=== PATIENT | male | born 1965 | race Caucasian/White ===

== ENCOUNTER 2018-12-15 07:55 | Emergency (ER) | payer BC, OTHER ==
[~2018-12-15] VITALS: Ht 177.8 cm; Wt 93.4 kg
[~2018-12-15 07:55] MED LIST: COLACE100 MG PO; DOXYCYCLINE HY100 MG PO; LEVAQUIN500 MG PO; SINGULAIR10 MG PO
--- NOTE | 2018-12-15 08:00 | NUR ---
[facility] WITH STEADY GAIT. PT AA&OX3. C/O INTERMITTENT SOB FOR ABOUT A WEEK. PT GOWNED AND PLACED ON MONITOR
[2018-12-15] MEDS ORDERED: ALBUTEROL SULF 0.083% NEB SOLN 3 ML NEB NEB STA (08:32)
[2018-12-15] MEDS ORDERED: CLONIDINE HCL 0.1 MG TAB PO ONE (08:45)
[2018-12-15] MEDS ORDERED: IPRATROPIUM BROMIDE 0.02% 2.5 ML NEB NEB ONE (08:45)
[2018-12-15] MEDS ORDERED: PREDNISONE 20 MG TAB PO ONE (08:45)
--- NOTE | 2018-12-15 09:47 | Diagnostic Imaging Report ---
EXAMINATION: CHEST 2 VIEWS INDICATION: Shortness of breath ^SOB ^[id number] ^0905 COMPARISON: None FINDINGS: TUBES and LINES: None. LUNGS: Lungs are well inflated. Perihilar peribronchial opacities due to bronchitis. There is no evidence of pneumonia or pulmonary edema. PLEURA: No pleural effusion or pneumothorax. HEART AND MEDIASTINUM: The cardiomediastinal silhouette is unremarkable. BONES AND SOFT TISSUES: No acute osseous lesion. Soft tissues are unremarkable. UPPER ABDOMEN: No free air under the diaphragm. IMPRESSION: Perihilar peribronchial opacities due to bronchitis. Signed by: Dr. Troy Guthrie M.D. on 12/15/2018 9:44 AM
== END 2018-12-15 10:22 | disposition home or self-care (01) ==
LOC: ER 07:55
DX: R05 Cough (principal); J20.9 Acute bronchitis, unspecified; J44.1 Chronic obstructive pulmonary disease with (acute) exacerbation; I10 Essential (primary) hypertension
CPT/HCPCS: 71046; 93005; 99283; J7512

== ENCOUNTER 2019-03-14 15:52 | Inpatient (IN) | payer BC ==
[~2019-03-14] VITALS: Ht 177.8 cm; Wt 93.4 kg
--- OUTSIDE RECORDS SUMMARY | 2019-03-14 15:54 | XMS REPORT ---
[facility] Address Unknown Phone Unavailable Care Team Providers Care Acrylic Fabricator Name Role Phone Radha OWENS Unavailable Unavailable Problems This patient has no known problems. Allergies, Adverse Reactions, Alerts This patient has no known allergies or adverse reactions. Medications This patient has no known medications. Results Test Description Test Time Test Comments Text Results Atomic Results Result Comments CHEST 2 VIEWS 2018-12-15 09:43:00 [place] [address] Patient Name: SUNG SZYMANSKI MR #: [id number] : 1965 Age/Sex: 53/M Req #: [id number] Adm Physician: Ordered by: DANII OWENS MD Report #: [id number] Location: ER Room/Bed: Procedure: [id number] DX/CHEST 2 VIEWS Exam Date: 12/15/18 Exam Time: 904 REPORT STATUS: Signed EXAMINATION: CHEST 2 VIEWS INDICATION: Shortness of breath SOB [id number] COMPARISON: None FINDINGS: TUBES and LINES: None. LUNGS: Lungs are well inflated. Perihilar peribronchial opacities due to bronchitis. There is no evidence of pneumonia or pulmonary edema. PLEURA: No pleural effusion or pneumothorax. HEART AND MEDIASTINUM: The cardiomediastinal silhouette is unremarkable. BONES AND SOFT TISSUES: No acute osseous lesion. Soft tissues are unremarkable. UPPER ABDOMEN: No free air under the diaphragm. IMPRESSION: Perihilar peribronchial opacities due to bronchitis. Signed by: Dr. Troy Guthrie M.D. on 12/15/2018 9:44 AM Dictated By: TROY GUTHRIE MD, MD 3 Transcribed By: YAN on 12/15/18943 COPY TO: DANII OWENS MD
[2019-03-14 17:12] LABS: BILIRUBIN,URINE NEGATIVE (NEGATIVE); CLARITY,URINE SL CLOUDY (CLEAR); COLOR,URINE YELLOW (YELLOW); KETONES,URINE NEGATIVE (NEGATIVE); LEUKOCYTE ESTERASE ,URINE NEGATIVE (NEGATIVE); NITRITE,URINE NEGATIVE (NEGATIVE); PROTEIN,URINE DIPSTICK TRACE (NEGATIVE); URINE UROBILINOGEN 0.2 mg/dL (0.2 - 1)
[2019-03-14 17:24] LABS: BACTERIA,URINE FEW /HPF; WBC,URINE (MAN) 0-5 /HPF (0-5)
[2019-03-14 17:25] LABS: MUCUS,URINE FEW (RARE)
[2019-03-14] MEDS ORDERED: SODIUM CHLORIDE 0.9% 1000ML 1,000 ML IV STA (18:03)
[2019-03-14] MEDS ORDERED: ONDANSETRON HCL INJ 2MG/ML 2ML 2 MG/ML VIAL ONE (18:10)
[2019-03-14] MEDS ORDERED: KETOROLAC TROMETHAMINE 30 MG/ML VIAL ONE (18:10)
[2019-03-14] MEDS ORDERED: ONDANSETRON HCL INJ 2MG/ML 2ML 2 MG/ML VIAL IV STA (18:12)
[2019-03-14] MEDS ORDERED: KETOROLAC TROMETHAMINE 30 MG/ML VIAL IV STA (18:12)
[2019-03-14] MEDS ORDERED: ONDANSETRON HCL INJ 2MG/ML 2ML 2 MG/ML VIAL IV ONE (18:30)
[2019-03-14] MEDS ORDERED: KETOROLAC TROMETHAMINE 30 MG/ML VIAL IV ONE (18:30)
[2019-03-14 18:57] LABS: BASOPHILS % 0.3 % (0.0-1.0); EOSINOPHILS # (AUTO) 0.2 (0.0-0.4); EOSINOPHILS % 1.4 % (0.0-6.0); HEMATOCRIT 45.4 % (38.2-49.6); HEMOGLOBIN 14.8 g/dL (14.0-18.0); LYMPHOCYTES # (AUTO) 4.1 (1.0-3.2); LYMPHOCYTES % 35.1 % (18.0-39.1); MEAN CORPUSCULAR HEMOGLOBIN 28.3 pg (28-32); MEAN CORPUSCULAR HGB CONC 32.6 g/dL (31-35); MEAN CORPUSCULAR VOLUME 86.8 fL (81-99); MONOCYTES % 8.6 % (4.4-11.3); NEUTROPHILS # (AUTO) 6.4 (2.1-6.9); NEUTROPHILS % 54.3 % (38.7-80.0); PLATELET COUNT 300 x10e3/uL (140-360); RED BLOOD COUNT 5.23 x10e6/uL (4.3-5.7); RED CELL DISTRIBUTION WIDTH 13.2 % (11.7-14.4)
[2019-03-14 19:03] LABS: ALANINE AMINOTRANSFERASE 19 IU/L (0-55); ALBUMIN 3.4 g/dL (3.5-5.0); ALBUMIN/GLOBULIN RATIO 0.7 (0.8-2.0); ALKALINE PHOSPHATASE 72 IU/L (40-150); ANION GAP 15.2 mmol/L (8-16); BLOOD UREA NITROGEN 11 mg/dL (7-26); BUN/CREATININE RATIO 13 (6-25); CALCIUM 9.9 mg/dL (8.4-10.2); CARBON DIOXIDE 27 mmol/L (22-29); CHLORIDE 96 mmol/L (98-107); CREATINE KINASE 38 IU/L (30-200); CREATININE, SERUM 0.86 mg/dL (0.72-1.25); EST GLOMERULAR FILTRATION RATE > 60 ML/MIN (60-); GLUCOSE 95 mg/dL (74-118); POTASSIUM 4.2 mmol/L (3.5-5.1); SODIUM 134 mmol/L (136-145)
[2019-03-14 19:06] LABS: AMYLASE 31 U/L (25-125); LIPASE 13 U/L (8-78)
--- NOTE | 2019-03-14 19:41 | Diagnostic Imaging Report ---
EXAM: CT ABDOMEN/PELVIS WO DATE: 03/14/2019 5:56 PM INDICATION: Right flank pain x4 days, 53-year-old male COMPARISON: None TECHNIQUE: The abdomen and pelvis were scanned using a multidetector helical scanner. Coronal and sagittal reformations were obtained. CT low dose techniques were utilized, as applicable. IV Contrast: 0 ml Isovue 300/370 FINDINGS: Lack of IV contrast decreases sensitivity in evaluating abdominal and pelvic organs. LOWER THORAX: No consolidations LIVER/BILIARY: No masses. No ductal dilatation. GALLBLADDER: Unremarkable SPLEEN: Unremarkable PANCREAS: Unremarkable ADRENALS: No nodules KIDNEYS: No stones. No hydronephrosis. GI TRACT: 5.1 cm soft tissue mass in the right lower quadrant with an adjacent enlarged appendix with extensive adjacent inflammatory stranding. An adjacent loop of small bowel appears effaced by this mass and inflammation VESSELS: Unremarkable PERITONEUM/RETROPERITONEUM: No free air or fluid LYMPH NODES: No lymphadenopathy REPRODUCTIVE ORGANS/BLADDER: Unremarkable SOFT TISSUES: Unremarkable BONES: No suspicious bone lesions. IMPRESSION: There is a 5.1 cm inflammatory mass in the right lower quadrant involving the distal appendix. This may represent acute appendicitis with extensive phlegmon formation, however an underlying mass lesion cannot be excluded. Signed by: Loki Small MD on 03/14/2019 7:37 PM
[2019-03-14] MEDS ORDERED: D5.45%NS/KCL 20MEQ 1,000 ML IV SCH (20:56)
[2019-03-14] MEDS ORDERED: ZOLPIDEM TARTRATE 5 MG TAB PO PRN (21:00)
[2019-03-14] MEDS ORDERED: DIPHENHYDRAMINE HCL INJ 50 MG/ML VIAL IV PRN (21:00)
[2019-03-14] MEDS ORDERED: AMLODIPINE BESYL5 MG PO (21:23)
[2019-03-14] MEDS: LACTATED RINGER'S 1,000 ML IV SCH (21:32)
[2019-03-14] MEDS: PIPER-TAZ 3.375 GM 50 ML IV SCH (21:51)
[2019-03-14] MEDS ORDERED: PIPER-TAZ 3.375 GM / NS 50ML IV SCH (22:00)
[2019-03-14 22:30] VITALS: BP 133/79
[2019-03-14] MEDS: METRONIDAZOLE 500MG/NS 100ML 100 ML IV SCH (22:30)
[2019-03-14] MEDS: MORPHINE SULFATE INJ 4 MG/ML INJ 1ML IV PRN (23:00)
[2019-03-15] VITALS (10 sets, daily range): BP systolic 110–152; BP diastolic 60–94
[2019-03-15] MEDS: ONDANSETRON HCL INJ 2MG/ML 2ML 2 MG/ML VIAL IV PRN ×3 (02:23→09:35)
--- NOTE | 2019-03-15 03:06 | NUR ---
PT IS TRANSFERRED FROM ER .PT IS AOX3 .RESPIRATIONS ARE EVEN AND UNLABORED .SKIN WARM AND DRY TO TOUCH C/O ABD PAIN .FAMILY AT THE BEDSIDE .PT IS NPO AFTER MIDNIGHT .ASSESSMENT DONE .PT RESTING .CALL LIGHT WITH IN REACH .CONTINUE TO MONITOR
[2019-03-15] MEDS: MORPHINE SULFATE INJ 4 MG/ML INJ 1ML IV PRN ×3 (03:10→21:50)
[2019-03-15] MEDS ORDERED: MORPHINE SULFATE 2 MG/ML SYR 1ML IV STA (04:32)
[2019-03-15] MEDS ORDERED: MORPHINE SULFATE INJ 4 MG/ML INJ 1ML IV PRN (04:45)
[2019-03-15] MEDS ORDERED: MORPHINE SULFATE INJ 4 MG/ML INJ 1ML IV STA (05:03)
[2019-03-15] MEDS: LACTATED RINGER'S 1,000 ML IV SCH (05:13)
[2019-03-15] MEDS: METRONIDAZOLE 500MG/NS 100ML 100 ML IV SCH ×3 (05:48→22:00)
--- NOTE | 2019-03-15 05:50 | NUR ---
PT C/O PAIN AND CALED DR DANIELLE'S BROADCAST OPERATIONS TECHNICIAN AND GOT THE ORDER FOR MORPHINE 2 MG STAT.GIVEN MORPHINE .PT RESTING .CALL LIGHT WITH IN REACH .
[2019-03-15 05:54] LABS: BASOPHILS % 0.3 % (0.0-1.0); EOSINOPHILS # (AUTO) 0.2 (0.0-0.4); HEMATOCRIT 40.1 % (38.2-49.6); HEMOGLOBIN 13.4 g/dL (14.0-18.0); LYMPHOCYTES # (AUTO) 3.5 (1.0-3.2); LYMPHOCYTES % 31.9 % (18.0-39.1); MEAN CORPUSCULAR HEMOGLOBIN 28.8 pg (28-32); MEAN CORPUSCULAR HGB CONC 33.4 g/dL (31-35); MEAN CORPUSCULAR VOLUME 86.1 fL (81-99); MONOCYTES # (AUTO) 0.9 (0.2-0.8); MONOCYTES % 8.3 % (4.4-11.3); NEUTROPHILS # (AUTO) 6.3 (2.1-6.9); NEUTROPHILS % 57.2 % (38.7-80.0); PLATELET COUNT 265 x10e3/uL (140-360); RED BLOOD COUNT 4.66 x10e6/uL (4.3-5.7); RED CELL DISTRIBUTION WIDTH 13.2 % (11.7-14.4)
[2019-03-15 06:11] LABS: ANION GAP 11.2 mmol/L (8-16); BLOOD UREA NITROGEN 12 mg/dL (7-26); BUN/CREATININE RATIO 14 (6-25); CALCIUM 9.2 mg/dL (8.4-10.2); CARBON DIOXIDE 28 mmol/L (22-29); CHLORIDE 101 mmol/L (98-107); CREATININE, SERUM 0.86 mg/dL (0.72-1.25); EST GLOMERULAR FILTRATION RATE > 60 ML/MIN (60-); GLUCOSE 112 mg/dL (74-118); POTASSIUM 4.2 mmol/L (3.5-5.1); SODIUM 136 mmol/L (136-145)
--- NOTE | 2019-03-15 07:15 | NUR ---
PATIENT IN BED RESTING WITH EYES CLOSED, NO RESPIRATORY DISTRESS OBSERVED. IV FLUID INFUSING ORDERED. TATOO ON BOTH ARMS. BED IN LOWER POSITION, CALL LIGHT AT REACH.
--- NOTE | 2019-03-15 07:29 | NUR ---
REPORT GIVEN TO THE ONCOMING NURSE
[2019-03-15] MEDS: PIPER-TAZ 3.375 GM 50 ML IV SCH ×3 (07:31→22:00)
[2019-03-15] MEDS: FAMOTIDINE 20 MG/2 ML VIAL IV SCH ×2 (09:38→16:55)
[2019-03-15] MEDS ORDERED: LORAZEPAM INJ 2 MG/ML VIAL IV PRN (10:45)
[2019-03-15] MEDS ORDERED: HYDRALAZINE HCL 20 MG/ML VIAL IV PRN (10:45)
[2019-03-15] MEDS ORDERED: ACETAMINOPHEN 325 MG TAB PO PRN (10:45)
--- NOTE | 2019-03-15 12:32 | NUR ---
DR UGARTE'S NEUROLOGY PHYSICIAN IN TO SEE PATIENT. NEW ORDERS RECEIVED.
[2019-03-15] MEDS: HYDROCODONE/APAP 7.5MG-325MG 1 EA TAB PO PRN ×2 (13:25→18:00)
[2019-03-15] MEDS ORDERED: CITRATE OF MAGNESIA 300ML BOTTLE PO NR (13:30)
--- NOTE | 2019-03-15 15:07 | NUR ---
Nutrition Screen Note RD Recommendation for Physician: - When medically feasible ADAT to goal of GI Soft Plan of Care: RD following, monitoring for tolerance and adequacy Nutrition reason for involvement: Nutrition Risk Trigger- MST Primary Diagnose(s): appendicitis, appendiceal abscess PMH: no H&P Ht: 70 in Wt: 206 lb BMI: 29.6 kg/m2 IBW: [address] Assessment: (03/15) 53 YOM admitted for appendicitis, evaluated today per MST screen. Pt discussed during am rounds, eval for surgical intervention pending. Pt in significant pain and moaning at time of visit, unable to obtain nutrition hx at this time. Pt with no signs of malnutrition per physical assessment. Chart reviewed. Labs and meds reviewed, BMP WNL. Will monitor and continue to follow. Current Diet: Clear Liquids Malnutrition Evaluation (03/15/19) The patient does not meet criteria for a specified degree of malnutrition at this time. Will re-evaluate at follow-up as appropriate. Unable to assess at this time. Diet Education Needs Assessment: Diet education not indicated, on transitionary diet. Nutrition Care Level: Low Signed: Sammie Aguirre RD, LD, CNSC
--- NOTE | 2019-03-15 15:30 | NUR ---
Visit made by the Spiritual Care Department Pastoral Visitor, Mary Miranda. PV provided pastoral presence, prayer, hospitality, and supportive listening. Pastoral Visitor informed pt/family of the scope of [facility] and availability. RAH SPENCER Basin Operator Spiritual Care Department O: [phone] Pager: [phone] ([phone] number calling from)
--- NOTE | 2019-03-15 15:33 | NUR ---
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
--- NOTE | 2019-03-15 16:42 | NUR ---
DR CRAIG IN TO SEE PATIENT, NOTIFIED OF PAIN MEDICATION NOT HELPING MUCH. NEW ORDERS RECEIVED.
[2019-03-15] MEDS ORDERED: LORAZEPAM 0.5 MG TAB PO PRN (17:15)
--- NOTE | 2019-03-15 19:29 | Consultation ---
DATE OF CONSULTATION: 03/15/2019 HISTORY OF PRESENT ILLNESS: The patient is a 53-year-old male, who presents with complaints of abdominal pain, says the pain started in mid abdomen about four days ago, now is more in the right flank. He denies nausea, vomiting, or fever. He came to the emergency room where CT scan of the abdomen and pelvis was done, which revealed a mass in the right lower quadrant associated with the appendix, but there was some small surrounding inflammation. The patient says the pain is a little bit worse today. PAST MEDICAL HISTORY: Otherwise unremarkable. He has hypertension. He has had no previous surgery. There were no known allergies. CURRENT MEDICATION: Amlodipine. FAMILY HISTORY: Noncontributory. SOCIAL HISTORY: The patient smokes cigarettes, had quit for a while, but recently he started smoking again, does not drink alcohol. 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 REVIEW OF SYSTEMS: As stated above, otherwise was negative. He has had no urinary symptoms. PHYSICAL EXAMINATION: GENERAL: The patient is awake and alert. VITAL SIGNS: Essentially normal. He is afebrile. Heart rate is around 100. HEENT: Reveals no scleral icterus. NECK: Has no masses. LUNGS: Equal breath sounds are clear bilaterally. CARDIAC: Regular rate and rhythm with no murmur. ABDOMEN: Soft. There is mild right lower quadrant tenderness with questionable signs of peritonitis. There are no palpable masses. EXTREMITIES: Have no edema. Pulses were palpable. NEUROLOGIC: Intact. LABORATORY DATA: White blood count 11,000, hemoglobin 13.4, hematocrit 40. Chemistries were essentially normal. ASSESSMENT: This is a 53-year-old male with abdominal pain with a mass in the right lower quadrant adjacent to the appendix appears possibly arising from the appendix, this could be an abscess or could be a tumor involving the appendix. The patient likely would benefit from surgery. At this point, we will try to do partial bowel prep as he may require partial colon resection as this does not have the typical appearance of appendiceal abscess, tentatively planned surgery for tomorrow. Procedure was explained to the patient including risks, benefits, and alternatives. He understands the procedure. He has had the opportunity to ask questions. He is aware of the possible need for open surgery. The possible need for partial colon resection. Thank you for asking me to see Mr. Contreras. Lloyd W MD JOSE Abdullahi/THAO /[id number]
--- NOTE | 2019-03-15 19:38 | NUR ---
RECEIVED PT IN BED AOX3 .DENIES PAIN .FAMILY AT THE BEDSIDE .PT NPO AFTER MIDNIGHT .CALL LIGHT WITH IN REACH
--- NOTE | 2019-03-16 01:10 | Consultation ---
DATE OF CONSULTATION: 03/15/2019 Psychiatric Consultation The patient was evaluated and events noted. REASON FOR CONSULTATION: To evaluate the patient's mood, anxiety, and depression. HISTORY OF PRESENT ILLNESS: The patient is a 53-year-old male, admitted to the hospital for appendiceal abscess. Psychiatric consultation is called to evaluate the patient's mood. Upon evaluation today, the patient is found to be in the room. He is alert, awake, and oriented to situation. The patient admits to having depression and anxiety due to recent loss of his son last year, which he is still grieving. He denies feeling hopeless or helpless. Denies any suicidal or homicidal ideation. Denies any hallucination. He reports intermittent problem with sleep. He denies any problem with appetite. The patient claims that he has tried Zoloft before, but had bad side effects, which made him more angry. He tried Lexapro before and it worked for him. PAST PSYCHIATRIC HISTORY: The patient denies past psychiatric history, although he claims he took Zoloft. He denies past suicide attempts. He denies alcohol or drug use. FAMILY HISTORY: The patient claims his mother has some sort of psychiatric illness. SOCIAL HISTORY: The patient lives with his . MENTAL STATUS EXAM: The patient is a middle-aged male. He is alert, awake, and oriented to situation. Mood is anxious and depressed. He denies any suicidal or homicidal ideation. He denies any hallucination. Affect seems good with mood. Insight and judgment are fair. Thought process is concrete. No delusion elicited. CURRENT MEDICATIONS: 1. Famotidine. 2. Morphine. 3. Metronidazole/sodium chloride. 4. Zosyn. 5. Pinnacle. 6. Zofran. 7. Hydralazine. 8. Tylenol. 9. Ativan p.r.n. IV. 10. Benadryl. 11. Ambien at bedtime p.r.n. LABORATORY DATA: Current labs; WBC 11.08, RBC 4.6, hemoglobin 13.4, hematocrit 40.1, and platelets 265. Sodium 136, potassium 4.2, chloride 101, CO2 of 28, BUN 12. ASSESSMENT: Major depressive disorder, recurrent, moderate. PLAN: 1. Add Lexapro 5 mg p.o. daily. 2. Ativan 0.5 mg p.o. q.6 hours p.r.n. 3. Continue Ativan p.r.n. IV. 4. Monitor for mood. 5. Supportive therapy. 6. Continue Ambien p.r.n. at bedtime. Thank you for this consultation. Dictated by Cande Madrigal PA-C Mariajose Bhagat MD QTV/MODL /[id number]
[2019-03-16] MEDS: MORPHINE SULFATE INJ 4 MG/ML INJ 1ML IV PRN ×5 (01:21→22:00)
[2019-03-16 04:27] VITALS: BP 150/69
[2019-03-16] MEDS ORDERED: ACETAMINOPHEN 325 MG SUPP PR PRN (04:30)
[2019-03-16 05:32] LABS: BASOPHILS % 0.4 % (0.0-1.0); EOSINOPHILS # (AUTO) 0.2 (0.0-0.4); EOSINOPHILS % 1.5 % (0.0-6.0); HEMATOCRIT 36.9 % (38.2-49.6); HEMOGLOBIN 12.7 g/dL (14.0-18.0); LYMPHOCYTES % 30.7 % (18.0-39.1); MEAN CORPUSCULAR HEMOGLOBIN 29.1 pg (28-32); MEAN CORPUSCULAR HGB CONC 34.4 g/dL (31-35); MEAN CORPUSCULAR VOLUME 84.6 fL (81-99); MONOCYTES # (AUTO) 0.8 (0.2-0.8); MONOCYTES % 8.3 % (4.4-11.3); NEUTROPHILS # (AUTO) 5.7 (2.1-6.9); NEUTROPHILS % 58.8 % (38.7-80.0); PLATELET COUNT 255 x10e3/uL (140-360); RED BLOOD COUNT 4.36 x10e6/uL (4.3-5.7); RED CELL DISTRIBUTION WIDTH 12.9 % (11.7-14.4)
[2019-03-16] MEDS: METRONIDAZOLE 500MG/NS 100ML 100 ML IV SCH ×3 (05:40→22:44)
[2019-03-16 05:53] LABS: ALANINE AMINOTRANSFERASE 45 IU/L (0-55); ALBUMIN 2.9 g/dL (3.5-5.0); ALKALINE PHOSPHATASE 84 IU/L (40-150); ANION GAP 13.1 mmol/L (8-16); BILIRUBIN,DIRECT 0.4 mg/dL (0.0-0.5); BLOOD UREA NITROGEN 9 mg/dL (7-26); BUN/CREATININE RATIO 11 (6-25); CALCIUM 8.8 mg/dL (8.4-10.2); CARBON DIOXIDE 26 mmol/L (22-29); CHLORIDE 98 mmol/L (98-107); EST GLOMERULAR FILTRATION RATE > 60 ML/MIN (60-); GLUCOSE 109 mg/dL (74-118); MAGNESIUM 1.6 MG/DL (1.3-2.1); POTASSIUM 4.1 mmol/L (3.5-5.1); SODIUM 133 mmol/L (136-145)
[2019-03-16 06:13] LABS: FREE T4 (FREE THYROXINE) 1.11 ng/dL (0.9-1.8); THYROID STIMULATING HORMONE 1.246 uIU/mL (0.350-4.940)
[2019-03-16 07:00] VITALS: BP 124/64
[2019-03-16] MEDS ORDERED: SODIUM CHLORIDE 0.9% 1000ML 1,000 ML IV SCH (07:00)
--- NOTE | 2019-03-16 07:00 | NUR ---
The pt. was received post bedside rounds completed with the of-going nurse. The pt. reports pain level at 9/10 and was advised that pain med will be given as soon as possible.
[2019-03-16] MEDS: PIPER-TAZ 3.375 GM 50 ML IV SCH ×3 (07:06→22:00)
--- NOTE | 2019-03-16 07:09 | NUR ---
PT C/O PAIN DURING THE NIGHT .GIVEN MORPHINE Q3HRS .TEM WAS HIGH NOTIFIED DR UGARET's BENDING MACHINE OPERATOR .GOT THE ORDER TO TYLENOL SUPPOSITORIES GIVEN TYLENOL SUPP.CONTINUE TO MONITOR
[2019-03-16 07:49] VITALS: BP 124/64
[2019-03-16] MEDS: FAMOTIDINE 20 MG/2 ML VIAL IV SCH ×2 (08:36→16:56)
[2019-03-16] MEDS: ESCITALOPRAM OXALATE 10 MG TAB PO SCH (08:36)
[2019-03-16 12:05] VITALS: BP 115/74
[2019-03-16] MEDS ORDERED: BUPIVACAINE HCL 0.5% INJ 30 ML VIAL INJ ONE (12:46)
[2019-03-16] MEDS ORDERED: ACETAMINOPHEN 325 MG TAB PO PRN (13:45)
[2019-03-16] MEDS ORDERED: ONDANSETRON HCL INJ 2MG/ML 2ML 2 MG/ML VIAL IV PRN (13:45)
[2019-03-16] MEDS ORDERED: HYDROMORPHONE 2MG/ML 2 MG/ML ML ONE (14:08)
--- NOTE | 2019-03-16 14:49 | NUR ---
The pt, returned to the unit from Surgery in stable condition.
--- NOTE | 2019-03-16 14:55 | NUR ---
ATTEMPTED TO GET CHOICE FOR PT SNF ORDER, PT IN PROCEDURE AND UNAVAILABLE.
[2019-03-16 15:52] VITALS: BP 149/75
[2019-03-16] MEDS: DEXTROSE 5%/LACTATED RINGERS 1,000 ML IV SCH ×2 (17:52→20:00)
[2019-03-16] MEDS ORDERED: FENTANYL CITRATE/PF 100MCG/2 ML INJ ONE (18:03)
--- NOTE | 2019-03-16 18:42 | NUR ---
The pt's iv is bleeding at the site and it was dc'd and a new start in the left hand 20g cath.
[2019-03-16] MEDS ORDERED: ONDANSETRON HCL INJ 2MG/ML 2ML 2 MG/ML VIAL ONE (18:43)
[2019-03-16] MEDS ORDERED: LIDOCAINE HCL 2% LOCAL INJ 5 ML SDV VIAL INJ ONE (18:43)
[2019-03-16] MEDS ORDERED: DEXAMETHASONE SOD PHOS INJ 4 MG/ML VIAL ONE (18:43)
[2019-03-16] MEDS ORDERED: PROPOFOL IV EMULSION 10 MG/ML 20 ML VIAL ONE (18:43)
[2019-03-16] MEDS ORDERED: ROCURONIUM BROMIDE 10 MG/ML 5ML VIAL ONE (18:43)
[2019-03-16] MEDS ORDERED: SEVOFLURANE INHAL SOLN 250 ML PEN BTL ONE (18:43)
--- NOTE | 2019-03-16 19:00 | NUR ---
Patient visited in room during nursing rounds. Patient alert and oriented x3. Ambulatory in room prn. at bedside visiting. Pt on IVF (D5LR at 125ml/hr) and scheduled IV antibiotics. Pt still having some frequent abdominal pain and will be medicated accordingly. Call shelton within reach. Will monitor closely.
--- NOTE | 2019-03-16 19:01 | NUR ---
3 Lap sites on abdomen noted s/p Lap Appendectomy. Bandages covering sites clean and dry.
[2019-03-16 20:00] VITALS: BP 134/64
--- NOTE | 2019-03-16 21:00 | Operative Report ---
DATE OF PROCEDURE: 03/16/2019 SURGEON: Lloyd Abdullahi MD PREOPERATIVE DIAGNOSIS: Acute appendicitis. POSTOPERATIVE DIAGNOSIS: Acute appendicitis with periappendiceal abscess. PROCEDURE: Laparoscopic appendectomy with drainage of periappendiceal abscess. GRAPHIC ART DESIGNER: None. ANESTHESIA: General endotracheal. INDICATIONS AND FINDINGS: The patient is a 53-year-old male admitted with complaints of right flank pain. Workup revealed findings suggesting a possible appendiceal abscess or mass involving the appendix. At surgery, there was abscess around the appendix which was in the retroperitoneum with the remainder of laparoscopy unremarkable. TECHNIQUE: After adequate general endotracheal anesthesia with the patient in supine position, the abdomen was prepped and draped in a sterile fashion with ChloraPrep solution. Skin in the umbilicus was infiltrated with 0.5% Marcaine. Incision was made in the umbilicus, abdominal wall was elevated and Veress needle was introduced. Pneumoperitoneum was then created. A 10 mm trocar and cannula were then passed through the umbilical wound. Laparoscopic camera was introduced. Initial laparoscopy revealed inflammatory process on the right side of the abdomen. A 12 mm trocar and cannula were placed suprapubically and a 5 mm trocar and cannula placed in the right upper quadrant. These were placed under direct vision. The small bowel was not involved with the mass. The cecum was adherent over the right lateral abdominal wall. Using blunt dissection, the cecum was freed from the abdominal wall and there was some purulent fluid, which was drained approximately 30 mL of purulence was drained. With the cecum elevated, base of the appendix identified and the base of the appendix was dissected free. Window was created between the base of the appendix and mesoappendix. The base of the appendix was divided close to the cecum with Endo-THALIA stapler. The appendix was freed from the abdominal wall, it was inflamed. The mesoappendix was divided with LigaSure device freeing the appendix completely. Appendix was then placed into an Endopouch and brought out through the suprapubic cannula. Care was taken to not touch the abdominal wall. The area of the appendectomy was inspected for hemostasis, which was seen to be adequate. It was irrigated with saline. All fluid aspirated and inspected for hemostasis, which was seen to be adequate. Instruments and cannulas were then removed. Pneumoperitoneum was evacuated. Wounds were then closed. Fascia in the umbilical and suprapubic wounds closed with 0-Vicryl. Skin to all wounds closed with rodger. Sterile dressing was applied. The patient tolerated the procedure well. Estimated blood loss was 25 mL. There were no complications. All counts were correct. The patient was taken to the recovery room in satisfactory condition. MD FLORA MartinG/MODL /[id number] cc: Donald Denny MD
[2019-03-17] VITALS (7 sets, daily range): BP systolic 97–131; BP diastolic 60–120
[2019-03-17] MEDS: MORPHINE SULFATE INJ 4 MG/ML INJ 1ML IV PRN ×3 (01:23→09:40)
[2019-03-17] MEDS: METRONIDAZOLE 500MG/NS 100ML 100 ML IV SCH ×3 (05:19→22:42)
[2019-03-17] MEDS: DEXTROSE 5%/LACTATED RINGERS 1,000 ML IV SCH (05:19)
[2019-03-17 05:52] LABS: BASOPHILS % 0.1 % (0.0-1.0); HEMATOCRIT 35.6 % (38.2-49.6); HEMOGLOBIN 11.7 g/dL (14.0-18.0); LYMPHOCYTES % 25.2 % (18.0-39.1); MEAN CORPUSCULAR HEMOGLOBIN 28.3 pg (28-32); MEAN CORPUSCULAR HGB CONC 32.9 g/dL (31-35); MONOCYTES # (AUTO) 0.9 (0.2-0.8); MONOCYTES % 7.5 % (4.4-11.3); NEUTROPHILS # (AUTO) 7.9 (2.1-6.9); NEUTROPHILS % 66.5 % (38.7-80.0); PLATELET COUNT 260 x10e3/uL (140-360); RED BLOOD COUNT 4.14 x10e6/uL (4.3-5.7); RED CELL DISTRIBUTION WIDTH 13.1 % (11.7-14.4)
[2019-03-17 06:17] LABS: ALANINE AMINOTRANSFERASE 39 IU/L (0-55); ALBUMIN 2.5 g/dL (3.5-5.0); ALKALINE PHOSPHATASE 73 IU/L (40-150); ANION GAP 8.2 mmol/L (8-16); BILIRUBIN,DIRECT 0.3 mg/dL (0.0-0.5); BLOOD UREA NITROGEN 8 mg/dL (7-26); BUN/CREATININE RATIO 11 (6-25); CALCIUM 8.5 mg/dL (8.4-10.2); CARBON DIOXIDE 29 mmol/L (22-29); CHLORIDE 98 mmol/L (98-107); CREATININE, SERUM 0.76 mg/dL (0.72-1.25); EST GLOMERULAR FILTRATION RATE > 60 ML/MIN (60-); GLUCOSE 152 mg/dL (74-118); MAGNESIUM 1.9 MG/DL (1.3-2.1); POTASSIUM 4.2 mmol/L (3.5-5.1); SODIUM 131 mmol/L (136-145)
[2019-03-17] MEDS: PIPER-TAZ 3.375 GM 50 ML IV SCH ×3 (06:32→22:00)
--- NOTE | 2019-03-17 07:00 | NUR ---
Received the pt. in bed asleep post pain med earlier on the previous shift. The pt. appears in stable condition.
[2019-03-17] MEDS: ESCITALOPRAM OXALATE 10 MG TAB PO SCH (08:15)
[2019-03-17] MEDS: FAMOTIDINE 20 MG/2 ML VIAL IV SCH ×2 (08:15→16:46)
--- NOTE | 2019-03-17 09:51 | NUR ---
Medicated for comp of pain and and advised that we will try p o pain med on the next call for pain.
[2019-03-17] MEDS: HYDROCODONE/APAP 7.5MG-325MG 1 EA TAB PO PRN ×2 (12:07→20:52)
--- NOTE | 2019-03-17 18:30 | Progress Note ---
DATE: 03/17/2019 Psychiatric Progress SUBJECTIVE: The patient is evaluated and events noted. The patient is in the room with family member. The patient states that he is doing well. He denies depression, denies anxiety. He denies any hallucination, denies any suicidal ideation. He denies any side effects from his medications. ASSESSMENT: Major depressive disorder, recurrent, moderate. PLAN: Plan is to: 1. Continue Lexapro 5 mg p.o. daily. 2. Continue Ativan p.r.n. p.o. 3. Continue Ativan p.r.n. IV. 4. Monitor for mood. 5. Supportive therapy. 6. Continue Ambien p.r.n. at bedtime. Dictated by Cande Madrigal PA-C Mariajose Bhagat MD QTV/MODL /[id number]
--- NOTE | 2019-03-17 19:00 | NUR ---
Patient visited in room during nursing rounds. Patient alert and oriented x3. Ambulatory in room prn. at bedside visiting. Pt on scheduled IV antibiotics. Pt still having some frequent abdominal pain and will be medicated accordingly. Pt described pain as "trapped gas" and encourage to ambulate more often. Three lap site covered with band-aid and appear clean and dry. Call shelton within reach. Will monitor closely.
--- NOTE | 2019-03-17 20:55 | NUR ---
Patient had a bathroom bath and tolerated bath well.
--- NOTE | 2019-03-17 21:47 | NUR ---
Called Rita Gonzalez (JUAN C) and reported pt complained of feeling constipated and requested for a stool softener. Rita ordered Lactulose 30mg PO x1 dose tonight.
[2019-03-17] MEDS ORDERED: LACTULOSE SYRUP 20 GM/30 ML UDC PO ONE (22:00)
[2019-03-18 00:37] VITALS: BP 111/63
[2019-03-18] MEDS: HYDROCODONE/APAP 7.5MG-325MG 1 EA TAB PO PRN ×3 (00:55→08:55)
[2019-03-18 04:00] VITALS: BP 109/54
--- NOTE | 2019-03-18 05:00 | NUR ---
Patient asleep and appear comfortable. Just received pain med ([place]) around 0453. Still awaiting for patient to have bowel movement. Otherwise condition stable.
[2019-03-18 05:50] LABS: BASOPHILS % 0.3 % (0.0-1.0); EOSINOPHILS # (AUTO) 0.1 (0.0-0.4); EOSINOPHILS % 1.6 % (0.0-6.0); HEMOGLOBIN 10.9 g/dL (14.0-18.0); LYMPHOCYTES # (AUTO) 2.4 (1.0-3.2); LYMPHOCYTES % 32.2 % (18.0-39.1); MEAN CORPUSCULAR HEMOGLOBIN 28.2 pg (28-32); MEAN CORPUSCULAR HGB CONC 32.1 g/dL (31-35); MEAN CORPUSCULAR VOLUME 88.1 fL (81-99); MONOCYTES # (AUTO) 0.5 (0.2-0.8); NEUTROPHILS # (AUTO) 4.3 (2.1-6.9); NEUTROPHILS % 58.4 % (38.7-80.0); PLATELET COUNT 267 x10e3/uL (140-360); RED BLOOD COUNT 3.86 x10e6/uL (4.3-5.7); RED CELL DISTRIBUTION WIDTH 13.2 % (11.7-14.4)
[2019-03-18] MEDS: METRONIDAZOLE 500MG/NS 100ML 100 ML IV SCH (06:00)
[2019-03-18 06:14] LABS: ANION GAP 9.2 mmol/L (8-16); BLOOD UREA NITROGEN 11 mg/dL (7-26); BUN/CREATININE RATIO 15 (6-25); CALCIUM 8.8 mg/dL (8.4-10.2); CARBON DIOXIDE 32 mmol/L (22-29); CHLORIDE 101 mmol/L (98-107); CREATININE, SERUM 0.72 mg/dL (0.72-1.25); EST GLOMERULAR FILTRATION RATE > 60 ML/MIN (60-); GLUCOSE 111 mg/dL (74-118); MAGNESIUM 1.9 MG/DL (1.3-2.1); POTASSIUM 4.2 mmol/L (3.5-5.1); SODIUM 138 mmol/L (136-145)
[2019-03-18] MEDS: PIPER-TAZ 3.375 GM 50 ML IV SCH (07:00)
[2019-03-18 07:34] VITALS: BP 131/75
[2019-03-18] MEDS ORDERED: LORAZEPAM0.5 MG PO (08:02)
[2019-03-18] MEDS ORDERED: FLAGYL500 MG PO (08:02)
[2019-03-18] MEDS ORDERED: LEXAPRO10 MG PO (08:02)
[2019-03-18] MEDS ORDERED: CEFTIN PO (08:02)
[2019-03-18] MEDS ORDERED: TYLENOL WITH C1 EACH PO (08:03)
[2019-03-18] MEDS: FAMOTIDINE 20 MG/2 ML VIAL IV SCH (08:54)
[2019-03-18] MEDS: ESCITALOPRAM OXALATE 10 MG TAB PO SCH (08:55)
[2019-03-18 09:00] VITALS: BP 131/75
[2019-03-18] MEDS ORDERED: ONDANSETRON HCL 4 MG ORAL DISINTEGRATING TAB PO PRN (09:15)
--- NOTE | 2019-03-18 11:30 | NUR ---
PATIENT DISCHARGE HOME- PATIENT OFF THE UNIT AT 1056 PER WHEELCHAIR ACCOMPANIED TO HIS PERSONAL VEHICLE BY RN. PATIENT IN STABLE CONDITION WITH NO S/S OF RESPIRATORY DISTRESS. NO PAIN VOICED. IV REMOVED AT 1045 WITH TIP INTACT. DISCHARGE TEACHING, INSTRUCTIONS, AND MEDICATIONS GIVEN TO THE PATIENT. ALL PERSONAL ITEMS TAKEN WITH THE PATIENT AND HIS .
[2019-03-18] MEDS ORDERED: FAMOTIDINE 20 MG TAB PO SCH (16:30)
--- NOTE | 2019-03-20 07:07 | Discharge Summary ---
ADMISSION DIAGNOSES: Acute appendicitis, anxiety, depression, fatty liver. DISCHARGE DIAGNOSES: Acute appendicitis, anxiety, depression, fatty liver, periappendiceal abscess. HISTORY: The patient has a history of hypertension, anxiety, depression, and fatty liver. SURGICAL HISTORY: None. FAMILY HISTORY: The patient's dad and brother have diabetes. SOCIAL HISTORY: The patient admits to smoking cigarettes one pack a day for 15 years. Illicit drug use, the patient admits to occasional marijuana use. His last use was about 2 weeks ago. HOSPITAL COURSE: A 53-year-old male complains of sharp, constant bilateral upper quadrant abdominal pain that began while at work. 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 The pain then radiated to the right flank and the patient had associated nausea. He denies vomiting, diarrhea, fever, dysuria, or hematuria. On admission, the patient had a CT of the abdomen that showed a 5.1 cm inflammatory mass in the right lower quadrant involving the distal appendix. This may represent acute appendicitis with extensive phlegmon formation. The patient then had a laparoscopic appendectomy with drain of the periappendiceal abscess on 03/16. Psychology was consulted per patient's request. The patient was started on Lexapro daily and Ativan p.r.n. Blood cultures were negative. The patient's diet was advanced and tolerated very well. The patient was discharged home with Tylenol No. 3, Ceftin, Lexapro, lorazepam, and Flagyl. She will follow up with primary care in 1 to 2 weeks and Surgery in one week. The patient understands discharge instructions and agrees to plan. Dictated by Rita Gonzalez NP MD BALJEET Hassan/MODL /[id number]
== END 2019-03-18 10:58 | disposition home or self-care (01) | DRG 342 ==
LOC: ER 15:52 → ERHOLD 21:28 → MED/SURG3 22:10
PROVIDERS: ADMIT Internal Medicine; ATTEND Internal Medicine
PROC: 0DTJ4ZZ Resection of Appendix, Percutaneous Endoscopic Approach (ICD-10-PCS; principal; 2019-03-16 12:56)
DX: K35.80 Unspecified acute appendicitis (principal); F33.9 Major depressive disorder, recurrent, unspecified; K76.0 Fatty (change of) liver, not elsewhere classified; I10 Essential (primary) hypertension
CPT/HCPCS: 36415; 74176; 80048; 80053; 80076; 81001; 82150; 82550; 82553; 83036; 83690; 83735; 83880; 84439; 84443; 84484; 85025; 87040; 88304; 99284; J1100; J1885; J2001; J2270; J2405; J2543; J7030; J7121